=== PATIENT | female | born 1985 ===

== ENCOUNTER 2017-02-23 00:42 | Inpatient (IN) | payer MEDICAID, OTHER ==
[2017-02-23] MEDS ORDERED: Sodium Chloride 0.9% 1,000 ML IV ONE (01:03)
[2017-02-23] MEDS ORDERED: Sodium Chloride 0.9% 1,000 ML ONE (01:14)
[2017-02-23 01:27] LABS: BASO % 0.4 % (0.0-2.0); EOS # 0.1 K/uL (0.0-0.7); EOS % 1.7 % (0.0-4.0); HEMATOCRIT 39.2 % (34.0-47.0); LYMPH % 40.5 % (20.0-40.0); MEAN CELL VOLUME 88.9 fL (81.0-99.0); MEAN CORPUSCULAR HEMOGLOBIN 29.2 pg (27.0-31.0); MEAN CORPUSCULAR HGB CONC 32.8 g/dL (33.0-37.0); MEAN PLATELET VOLUME 9.6 fL (7.2-11.7); MONO # 0.6 K/uL (0.0-0.8); MONO % 7.4 % (0.0-10.0); RED CELL DISTRIBUTION WIDTH 12.9 % (11.5-14.5); WHITE BLOOD COUNT 7.4 K/uL (4.8-10.8)
[2017-02-23 01:40] LABS: CHLORIDE 104 mmol/L (98-107)
[2017-02-23 01:41] LABS: POTASSIUM 3.5 mmol/L (3.6-5.2); RBC URINE 2 /hpf (0-3); SODIUM 139 mmol/L (132-148); URINE BACTERIA RARE (<OCC); URINE BILIRUBIN NEGATIVE (NEGATIVE); URINE BLOOD 1+ (NEGATIVE); URINE COLOR Straw (YELLOW); URINE GLUCOSE (UA) NORMAL (Normal); URINE KETONE NEGATIVE (NEGATIVE); URINE LEUKOCYTE ESTERASE TRACE Leu/uL (Negative); URINE PROTEIN NEGATIVE (NEGATIVE); URINE UROBILINOGEN NORMAL mg/dL (0.2-1.0); WBC URINE 6 /hpf (0-5)
[2017-02-23 01:43] LABS: ALB/GLOB RATIO 1.3 (1.0-2.1); ALKALINE PHOSPHATASE 132 U/L (38-126); ALT/SGPT 37 U/L (9-52); AST/SGOT 26 U/L (14-36); BILIRUBIN,TOTAL < 0.1 mg/dL (0.2-1.3); BLOOD UREA NITROGEN 9 mg/dL (7-17); CALCIUM 8.2 mg/dl (8.6-10.4); CARBON DIOXIDE 22 mmol/L (22-30); GFR AFRICAN-AMERICAN > 60; GLUCOSE,RANDOM 103 mg/dL (65-105); TOTAL PROTEIN 7.3 g/dL (6.3-8.3)
--- NOTE | 2017-02-23 02:14 | C.PDOC ---
Time Seen by Provider: 02/23/17 00:57 Chief Complaint (Nursing): Abdominal Pain History Per: Patient Onset/Duration Of Symptoms: Hrs (3) Current Symptoms Are (Timing): Still Present Location Of Pain/Discomfort: RUQ Radiation Of Pain To:: Flank Quality Of Discomfort: "Pain" Associated Symptoms: Nausea Alleviating Factors: None Additional History Per: Prior Records Past Medical History Reviewed: Historical Data, Nursing Documentation, Vital Signs Vital Signs: Last Vital Signs Temp 98.1 F 02/23/17 00:51 Pulse 68 02/23/17 00:51 Resp 18 02/23/17 00:51 BP 127/88 02/23/17 00:51 Pulse Ox 99 02/23/17 04:09 - Medical History PMH: Gall Bladder Disease (Cholelithiasis) Surgical History: (x3) Family History: States: Unknown Family Hx - Social History Hx Alcohol Use: No Hx Substance Use: No - Immunization History Hx Tetanus Toxoid Vaccination: No Hx Influenza Vaccination: Yes Hx Pneumococcal Vaccination: No Review Of Systems Except As Marked, All Systems Reviewed And Found Negative. Constitutional: Negative for: Fever, Weakness Cardiovascular: Negative for: Chest Pain Respiratory: Negative for: Cough, Shortness of Breath Gastrointestinal: Positive for: Nausea, Abdominal Pain. Negative for: Vomiting , Diarrhea Genitourinary: Negative for: Dysuria Musculoskeletal: Negative for: Neck Pain Skin: Negative for: Rash Neurological: Negative for: Weakness, Numbness, Seizures, Altered Mental Status Physical Exam - Physical Exam Appears: Non-toxic, No Acute Distress Skin: Normal Color, Warm, Dry, No Rash Head: Atraumatic, Normacephalic Eye(s): bilateral: PERRL, EOMI Neck: Normal ROM, Supple Cardiovascular: Rhythm Regular Respiratory: Normal Breath Sounds, No Accessory Muscle Use Gastrointestinal/Abdominal: Soft, Tenderness (RUQ), No Guarding, No Rebound Back: No CVA Tenderness Extremity: Normal ROM, No Pedal Edema, No Calf Tenderness Neurological/Psych: Oriented x3, Normal Motor, Normal Sensation ED Course And Treatment - Laboratory Results Result Diagrams: 02/23/17 01:24 02/23/17 01:24 Lab Interpretation: Abnormal Interpretation Of Abnormal: Elevated Alk phos level. Urine POC: Negative O2 Sat by Pulse Oximetry: 99 Pulse Ox Interpretation: Normal - CT Scan/US RUQ Sono Other Rad Studies (CT/US): Read By Radiologist, Radiology Report Reviewed CT/US Interpretation: IMPRESSION: Gallstones noting a gallstone appearing impacted in the gallbladder neck. Prominent common bile duct with no stone identified in the common bile duct. within limits of the study. Laboratory correlation for biliary obstruction and. clinical correlation for possible cholecystitis is recommended. . Normal right kidney. - Physician Consult Information Physician Contacted: Andrae Nowak (Surg.) Outcome Of Conversation: He will consult on pt and is planning on taking pt to the OR later today. He requested to give Rocephin and keep NPO. Progress - Interventions Interventions:: Observation, Intravenous fluid - Medications Administered Intravenous: Antiemetic, H-2 brennan, Opiate - Data Reviewed Data Reviewed: Lab, Diagnostic imaging, Old records - Patient Status Patient status: Partially improved - Continuity of Care Discussed patient case with:: Patient, ED Nurse, On-call PMD-pt unassigned Discussed pt. case with client relationship consultant/specialty: General Surgery - Patient Plan Patient Plan: Admission Disposition Discussed With : Yasmany Daniel Comment: He accepted pt on hospitalist service. Doctor Will See Patient In The: Hospital Counseled Patient/Family Regarding: Studies Performed, Diagnosis - Disposition Disposition: HOSPITALIZED Disposition Time: 05:11 Condition: FAIR - Clinical Impression Clinical Impression: Impacted gallstone of gallbladder, Right upper quadrant abdominal pain, Acquired dilation of common bile duct
--- NOTE | 2017-02-23 03:41 | US ---
EXAM: US Abdomen Limited, Right Upper Quadrant CLINICAL HISTORY: 31 years old, female; Pain; Abdominal pain; Epigastric; Additional info: Ruq pain, h/o gallstones TECHNIQUE: Real-time ultrasound of the right upper quadrant with image documentation. EXAM DATE/TIME: Exam ordered 02/23/2017 1:45 AM COMPARISON: US - ABDOMEN LIMITED 09/07/2015 8:29:34 AM FINDINGS: Liver: Liver measures 16.8 cm, increased echogenicity is seen, a finding which is statistically most often associated with hepatic steatosis. There is an area of focally decreased relative echogenicity which could represent focal fatty sparing but is not further defined on this study. Please note that hepatic steatosis is a new finding compared to prior of September 2015. Gallbladder: There are multiple gallstones, one of these appears impacted in the gallbladder neck. Gallbladder wall is 2 mm which is within normal limits. As per the geospatial information technologist, there was no sonographic Tobar's sign identified. Common bile duct: Unremarkable as visualized. No stones. No dilation. Pancreas: Unremarkable as visualized. Right kidney: The right kidney measures 10.8 x 4.0 x 4.9 cm, with no hydronephrosis, calcification, or contour deforming masses. No stones. Spleen: The spleen is not imaged. Free fluid: No perihepatic ascites is seen. Other findings: The common duct is 10 mm which is pathologically prominent. IMPRESSION: Gallstones noting a gallstone appearing impacted in the gallbladder neck. Prominent common bile duct with no stone identified in the common bile duct within limits of the study. Laboratory correlation for biliary obstruction and clinical correlation for possible cholecystitis is recommended. Normal right kidney.
[2017-02-23] MEDS ORDERED: Morphine 4 MG/ML VIAL ONE (03:51)
[2017-02-23] MEDS ORDERED: cefTRIAXone IV 1 gm in Dextros 50 ML IVPB ONE ×2 (05:13→05:24)
--- NOTE | 2017-02-23 05:58 | CP.PCM.HP ---
<Aubrey ZUNIGARadha Gruber - Last Filed: 02/23/17 07:37> History of Present Illness - History of Present Illness History of Present Illness: Patient is a 31 year old female with past medical history of cholelithiasis presents to the ER with complaint of right upper quadrant abdominal pain. Patient states that the pain began 9PM the evening of 02/22/17. Patient denies radiation of pain. Patient states this has happened in the past and the pain will usually last 2-3 days at a time. Patient states the pain is aggravated with fatty or fried foods. Patient admits that she has been told to avoid these types of food in the past. Patient denies fever, chills, chest pain, shortness of breath. Patient admits to nausea but denies vomiting. Patient denies changes in appetite. Patient reports normal bowel movement yesterday, denies diarrhea, denies dysuria. Patient is requesting surgery as this has happened to her multiple times in the past. Patient interview conducted with video digital marketing specialist [facility] # [id number]. 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 absent: Constipation, Diarrhea, Hematemesis, Hematochezia, Vomiting - Genitourinary Genitourinary: absent: Difficulty Urinating, Dysuria - Musculoskeletal Musculoskeletal: absent: Back Pain - Neurological Neurological: absent: Dizziness, Weakness Past Patient History - Infectious Disease Hx of Infectious Diseases: None - Past Social History Smoking Status: Never Smoked - GASTROINTESTINAL Hx Gall Bladder Disease: Yes (Cholelithiasis) - PSYCHIATRIC Hx Substance Use: No - SURGICAL HISTORY Hx Surgeries: Yes Hx Section: Yes (x3) - ANESTHESIA Hx Anesthesia: Yes Hx Anesthesia Reactions: No Hx Malignant Hyperthermia: No Meds Allergies/Adverse Reactions: Allergies Allergy/AdvReac Type Severity Reaction Status Date / Time No Known Allergies Allergy Verified 02/23/17 00:49 Physical Exam - Constitutional Appears: Non-toxic, No Acute Distress - Head Exam Head Exam: ATRAUMATIC, NORMOCEPHALIC - Eye Exam Eye Exam: EOMI, Normal appearance - ENT Exam ENT Exam: Mucous Membranes Moist - Respiratory Exam Respiratory Exam: Clear to Auscultation Bilateral - Cardiovascular Exam Cardiovascular Exam: +S1, +S2 - GI/Abdominal Exam GI & Abdominal Exam: Guarding, Normal Bowel Sounds, Tenderness (right upper quadrant). absent: Distended, Firm - Extremities Exam Extremities exam: Positive for: normal inspection. Negative for: calf tenderness, pedal edema - Neurological Exam Neurological exam: Alert - Psychiatric Exam Psychiatric exam: Normal Affect - Skin Skin Exam: Dry, Normal Color, Warm Results - Vital Signs Recent Vital Signs: Last Vital Signs Temp 98.1 F 02/23/17 05:27 Pulse 85 02/23/17 05:27 Resp 20 02/23/17 05:27 BP 130/74 02/23/17 05:27 Pulse Ox 99 02/23/17 05:27 - Labs Result Diagrams: 02/23/17 01:24 02/23/17 01:24 Labs: Laboratory Results - last 24 hr 02/23/17 01:24 WBC 7.4 D RBC 4.41 Hgb 12.9 Hct 39.2 MCV 88.9 MCH 29.2 MCHC 32.8 L RDW 12.9 Plt Count 214 MPV 9.6 Neut % (Auto) 50.0 Lymph % (Auto) 40.5 H Young % (Auto) 7.4 Eos % (Auto) 1.7 Baso % (Auto) 0.4 Neut # 3.7 Lymph # 3.0 Young # 0.6 Eos # 0.1 Baso # 0.0 Sodium 139 Potassium 3.5 L Chloride 104 Carbon Dioxide 22 Anion Gap 17 BUN 9 Creatinine 0.5 L Est GFR ( Amer) > 60 Est GFR (Non-Af Amer) > 60 Random Glucose 103 Calcium 8.2 L Total Bilirubin < 0.1 L AST 26 ALT 37 Alkaline Phosphatase 132 H D Total Protein 7.3 Albumin 4.1 Globulin 3.2 Albumin/Globulin Ratio 1.3 Lipase 57 Urine Color Straw Urine Clarity Hazy Urine pH 6.0 Ur Specific Crowley 1.004 Urine Protein Negative Urine Glucose (UA) Normal Urine Ketones Negative Urine Blood 1+ H Urine Nitrate Negative Urine Bilirubin Negative Urine Urobilinogen Normal Ur Leukocyte Esterase Trace Urine WBC (Auto) 6 H Urine RBC (Auto) 2 Ur Squamous Epith Cells 11 H Urine Bacteria Rare Urine HCG, Qual Negative Assessment & Plan (1) Right upper quadrant abdominal pain Assessment and Plan: RUQ Sono Other Rad Studies (CT/US): Read By Radiologist, Radiology Report Reviewed CT/US Interpretation: IMPRESSION: Gallstones noting a gallstone appearing impacted in the gallbladder neck. Prominent common bile duct with no stone identified in the common bile duct. within limits of the study. Laboratory correlation for biliary obstruction and. clinical correlation for possible cholecystitis is recommended. Normal right kidney. will check HIDA scan dilaudid 0.5 mg q4h prn ceftriaxone 1g daily zofran q6prn keep npo until surgical evaluation by Dr. Nowak Status: Acute (2) Prophylactic measure Assessment and Plan: SCDs no chemical anticoagulation in case of surgical intervention Status: Acute <Yasmany Daniel P - Last Filed: 02/27/17 20:24> Results - Vital Signs Recent Vital Signs: Last Vital Signs Temp 98.4 F 02/24/17 08:28 Pulse 75 02/24/17 08:28 Resp 18 02/24/17 08:28 BP 102/62 02/24/17 08:28 Pulse Ox 99 02/24/17 08:28 - Labs Result Diagrams: 02/24/17 11:48 02/24/17 11:48 Attending/Attestation - Attestation I have personally seen and examined this patient.: Yes I have fully participated in the care of the patient.: Yes I have reviewed all pertinent clinical information: Yes
[2017-02-23] MEDS ORDERED: HYDROmorphone 0.5 mg/0.5 ml ISec IVP PRN ×2 (06:17→14:32)
--- NOTE | 2017-02-23 13:16 | NM ---
PROCEDURE: Nuclear Medicine Hepatobiliary Scan HISTORY: RUQ pain COMPARISON: February 23, 2017. Right upper quadrant ultrasound. TECHNIQUE: 5.1 mCi of technetium 99m Mebrofenin was administered intravenously. Planar images of the abdomen were obtained at 5 min intervals to 60 mins. Delayed images were also obtained. FINDINGS: LIVER: Timely and homogenous uptake. COMMON BILE DUCT: identified at 25 mins. GALLBLADDER not visualized on the delayed images at 03:00 SMALL BOWEL: Identified at 35 mins. IMPRESSION: Positive Hepatobiliary Scan. The cystic duct is occluded. Findings consistent with recent ultrasound findings, it indicative of acute cholecystitis. .
[2017-02-23] MEDS ORDERED: Midazolam 2 MG/2 ML VIAL ONE (13:18)
[2017-02-23] MEDS ORDERED: Propofol 10 mg/ml Inj (20 ML) ONE (13:19)
[2017-02-23] MEDS ORDERED: Rocuronium 10 mg/ml (5 ml) ONE (13:19)
[2017-02-23] MEDS ORDERED: Succinylcholine Chloride 20 mg/ml Syr (5 ml) IV ONE (13:19)
[2017-02-23] MEDS ORDERED: Phenylephrine 10 mg/ml Inj ONE (13:24)
[2017-02-23] MEDS ORDERED: Neostigmine Methylsulfate 3mg/3ml Syringe IV ONE (14:27)
[2017-02-23] MEDS ORDERED: Albuterol 0.083% Inhal Sol (2.5 mg/3 mL) UD INH PRN (14:32)
[2017-02-23] MEDS ORDERED: Oxycodone/Acetaminophen 5/325 mg Tab PO PRN (15:21)
--- NOTE | 2017-02-23 15:21 | OP ---
PROCEDURE DATE: 02/23/2017 PREOPERATIVE DIAGNOSIS: Acute cholecystitis. POSTOPERATIVE DIAGNOSES: Acute cholecystitis with umbilical hernia. PROCEDURE PERFORMED: 1. Laparoscopic cholecystectomy. 2. Repair of liver bleeding. 3. Repair of umbilical hernia. SURGEON: Andrae Nowak MD ANESTHESIA: General. ESTIMATED BLOOD LOSS: 75 mL. POSTOPERATIVE CONDITION: Stable. INDICATIONS FOR SURGERY: This is a 31-year-old female admitted with cholecystitis, taken to the OR f or laparoscopic cholecystectomy the day of admission. GROSS FINDINGS: The gallbladder was acutely inflamed. There was a small umbilical hernia noted upon cutdown. DESCRIPTION OF PROCEDURE: The patient was taken to the operating room. General anesthesia was admin istered and the abdomen was prepped and draped. A periumbilical cutdown ____ a small hernia was enco untered and the blunt port was inserted through the hernia site. The abdomen was then insufflated wi th CO2 and under direct vision, the remaining ports were placed. The gallbladder was grasped and ret racted after it was decompressed. The cystic duct was carefully dissected free. The cystic ____ gal lbladder, cystic duct, common duct junctions were clearly identified and the cystic duct was then cli pped and divided. The cystic artery was then dissected free, clipped and divided. The gallbladder w as removed from the bed using the cautery. Bleeding in the bed was controlled using the cautery. A bleeder on the lateral edge of the liver was controlled with a clip. The wound was irrigated. The a bdomen was irrigated with saline until clear. The umbilical hernia was closed with interrupted heavy Vicryl suture. The wounds were all irrigated with saline and simple skin closures were performed reeder bcuticularly with Monocryl. The patient tolerated the procedure well, returned to recovery room in s table condition. Andrae Nowak MD cc: [id number] TT: 02/23/2017 15:20:45
--- NOTE | 2017-02-23 16:06 | CP.PCM.PN ---
<Sony Schaefer - Last Filed: 02/23/17 16:08> Subjective - Date & Time of Evaluation Date of Evaluation: 02/23/17 Time of Evaluation: 09:15 - Subjective Subjective: PGY-1 Medicine Progress Note for Dr. Whatley Patient seen and examined at bedside this AM. Patient resting in bed comfortably. Patient was found to have cholelithiasis with impacted gallstone in neck of gallbladder. HIDA scan indicated acute cholecystitis so she was scheduled for cholecystectomy today with Dr. Nowak. Admits to nausea and abd pain but denies fever/chills, cp, sob, palpitations, vomiting, diarrhea. Objective - Vital Signs/Intake and Output Vital Signs (last 24 hours): Temp Pulse Resp BP Pulse Ox 97.6 F 69 19 108/72 98 02/23/17 15:53 02/23/17 15:53 02/23/17 15:53 02/23/17 15:53 02/23/17 15:53 Intake and Output: 02/23/17 02/23/17 06:59 18:59 Intake Total 1600 Balance 1600 - Medications Medications: Current Medications Albuterol Sulfate (Albuterol 0.083% Inhal Kelly (2.5 Mg/3 Ml) Ud) 2.5 mg INH PRN PRN PRN Reason: Shortness of Breath Hydromorphone HCl (Dilaudid) 0.5 mg IVP Q4H PRN PRN Reason: Pain, moderate (4-7) Hydromorphone HCl (Dilaudid) 0.5 mg IVP Q10M PRN PRN Reason: Pain, moderate (4-7) Stop: 02/23/17 16:33 Last Admin: 02/23/17 15:25 Dose: 0.5 mg Ceftriaxone Sodium 1 gm/ (Sodium Chloride) 100 mls @ 100 mls/hr IVPB DAILY [place] Last Admin: 02/23/17 11:07 Dose: 100 mls/hr Ondansetron HCl (Zofran Inj) 4 mg IVP Q6H PRN PRN Reason: Nausea/Vomiting Ondansetron HCl (Zofran Inj) 4 mg IVP ONCE PRN PRN Reason: Nausea/Vomiting Stop: 02/23/17 17:21 Last Admin: 02/23/17 15:20 Dose: 4 mg Oxycodone/Acetaminophen (Percocet 5/325 Mg Tab) 2 tab PO Q4H PRN PRN Reason: pain Stop: 02/26/17 15:22 - Constitutional Appears: No Acute Distress - Head Exam Head Exam: ATRAUMATIC, NORMOCEPHALIC - Eye Exam Eye Exam: EOMI, Normal appearance Pupil Exam: NORMAL ACCOMODATION, PERRL - ENT Exam ENT Exam: Mucous Membranes Moist - Neck Exam Neck Exam: Normal Inspection - Respiratory Exam Respiratory Exam: Clear to Ausculation Bilateral, NORMAL BREATHING PATTERN - Cardiovascular Exam Cardiovascular Exam: REGULAR RHYTHM, +S1, +S2 - GI/Abdominal Exam GI & Abdominal Exam: Soft, Tenderness (RUQ), Normal Bowel Sounds - Extremities Exam Extremities Exam: Normal Capillary Refill. absent: Calf Tenderness - Back Exam Back Exam: absent: CVA tenderness (L), CVA tenderness (R) - Neurological Exam Neurological Exam: Alert, Awake, CN II-XII Intact, Normal Gait, Oriented x3 - Psychiatric Exam Psychiatric exam: Normal Affect, Normal Mood - Skin Skin Exam: Dry, Intact, Normal Color, Warm Assessment and Plan - Assessment and Plan (Free Text) Plan: (1) Right upper quadrant abdominal pain Assessment and Plan: s/p cholecystectomy today with Dr. Eliu DUARTE CT/US Interpretation: Gallstones noting a gallstone appearing impacted in the gallbladder neck. Prominent common bile duct with no stone identified in the common bile duct. within limits of the study. Laboratory correlation for biliary obstruction and. clinical correlation for possible cholecystitis is recommended. Normal right kidney (see full report) HIDA scan: acute cholecystitis (see full report) dilaudid 0.5 mg q4h prn percocet 1 tab PO Q4H PRN ceftriaxone 1g daily zofran q6prn (2) Prophylactic measure Assessment and Plan: SCDs no chemical anticoagulation in case of surgical intervention <Ankit Whatley - Last Filed: 03/28/17 13:05> Objective - Vital Signs/Intake and Output Vital Signs (last 24 hours): Temp Pulse Resp BP Pulse Ox 98.4 F 75 18 102/62 99 02/24/17 08:28 02/24/17 08:28 02/24/17 08:28 02/24/17 08:28 02/24/17 08:28 - Labs Labs: 02/24/17 11:48 02/24/17 11:48 Attending/Attestation - Attestation I have personally seen and examined this patient.: Yes I have fully participated in the care of the patient.: Yes I have reviewed all pertinent clinical information, including history, physical exam and plan: Yes Notes (Text): Patient seen and examined with the resident. Agree with the resident's evaluation, assessment and plan. (1) Right upper quadrant abdominal pain Assessment and Plan: s/p cholecystectomy today with Dr. Eliu DUARTE CT/US Interpretation: Gallstones noting a gallstone appearing impacted in the gallbladder neck. Prominent common bile duct with no stone identified in the common bile duct. within limits of the study. Laboratory correlation for biliary obstruction and. clinical correlation for possible cholecystitis is recommended. Normal right kidney (see full report) HIDA scan: acute cholecystitis (see full report) dilaudid 0.5 mg q4h prn percocet 1 tab PO Q4H PRN ceftriaxone 1g daily zofran q6prn
[2017-02-24 08:30] VITALS: BP 102/62; PULSE 75; RESP 18; TEMP 98.4; O2SAT 99
[2017-02-24 11:54] LABS: BASO % 0.1 % (0.0-2.0); HEMATOCRIT 36.5 % (34.0-47.0); LYMPH # 1.3 K/uL (1.0-4.3); LYMPH % 12.4 % (20.0-40.0); MEAN CELL VOLUME 88.3 fL (81.0-99.0); MEAN CORPUSCULAR HEMOGLOBIN 29.3 pg (27.0-31.0); MEAN CORPUSCULAR HGB CONC 33.2 g/dL (33.0-37.0); MEAN PLATELET VOLUME 9.6 fL (7.2-11.7); MONO # 0.9 K/uL (0.0-0.8); MONO % 7.9 % (0.0-10.0); RED CELL DISTRIBUTION WIDTH 12.9 % (11.5-14.5); WHITE BLOOD COUNT 10.8 K/uL (4.8-10.8)
[2017-02-24 12:11] LABS: CHLORIDE 104 mmol/L (98-107); POTASSIUM 3.5 mmol/L (3.6-5.2); SODIUM 138 mmol/L (132-148)
[2017-02-24 12:13] LABS: BILIRUBIN,TOTAL 0.4 mg/dL (0.2-1.3); CARBON DIOXIDE 23 mmol/L (22-30); GFR AFRICAN-AMERICAN > 60
[2017-02-24 12:14] LABS: ALB/GLOB RATIO 1.2 (1.0-2.1); ALKALINE PHOSPHATASE 96 U/L (38-126); BLOOD UREA NITROGEN 6 mg/dL (7-17); CALCIUM 8.2 mg/dl (8.6-10.4); GLUCOSE,RANDOM 99 mg/dL (65-105); TOTAL PROTEIN 6.9 g/dL (6.3-8.3)
[2017-02-24 12:26] LABS: ALT/SGPT 263 U/L (9-52); AST/SGOT 176 U/L (14-36)
--- NOTE | 2017-02-24 13:44 | CP.PCM.DIS ---
<JaeanaSony delgado - Last Filed: 04/19/17 14:56> Provider - Provider Date of Admission: 02/23/17 05:13 Attending physician: Yasmany Daniel MD Consults: Gen Surg: Dr. Nowak Time Spent in preparation of Discharge (in minutes): 35 Diagnosis - Discharge Diagnosis (1) Cholecystitis Status: Acute (2) Abdominal pain Status: Acute (3) Cholelithiasis Status: Acute Hospital Course - Lab Results Lab Results: Most Recent Lab Values WBC 10.8 K/uL (4.8-10.8) 02/24/17 11:48 RBC 4.13 Mil/uL (3.80-5.20) 02/24/17 11:48 Hgb 12.1 g/dL (11.0-16.0) 02/24/17 11:48 Hct 36.5 % (34.0-47.0) 02/24/17 11:48 MCV 88.3 fL (81.0-99.0) 02/24/17 11:48 MCH 29.3 pg (27.0-31.0) 02/24/17 11:48 MCHC 33.2 g/dL (33.0-37.0) 02/24/17 11:48 RDW 12.9 % (11.5-14.5) 02/24/17 11:48 Plt Count 224 K/uL (130-400) 02/24/17 11:48 MPV 9.6 fL (7.2-11.7) 02/24/17 11:48 Neut % (Auto) 79.6 % (50.0-75.0) H 02/24/17 11:48 Lymph % (Auto) 12.4 % (20.0-40.0) L 02/24/17 11:48 [place] % (Auto) 7.9 % (0.0-10.0) 02/24/17 11:48 Eos % (Auto) 0.0 % (0.0-4.0) 02/24/17 11:48 Baso % (Auto) 0.1 % (0.0-2.0) 02/24/17 11:48 Neut # 8.6 K/uL (1.8-7.0) H 02/24/17 11:48 Lymph # 1.3 K/uL (1.0-4.3) 02/24/17 11:48 Garrett # 0.9 K/uL (0.0-0.8) H 02/24/17 11:48 Eos # 0.0 K/uL (0.0-0.7) 02/24/17 11:48 Baso # 0.0 K/uL (0.0-0.2) 02/24/17 11:48 Sodium 138 mmol/L (132-148) 02/24/17 11:48 Potassium 3.5 mmol/L (3.6-5.2) L 02/24/17 11:48 Chloride 104 mmol/L (98-107) 02/24/17 11:48 Carbon Dioxide 23 mmol/L (22-30) 02/24/17 11:48 Anion Gap 15 (10-20) 02/24/17 11:48 BUN 6 mg/dL (7-17) L 02/24/17 11:48 Creatinine 0.6 MG/DL (0.7-1.2) L 02/24/17 11:48 Est GFR ( Amer) > 60 02/24/17 11:48 Est GFR (Non-Af Amer) > 60 02/24/17 11:48 Random Glucose 99 mg/dL (65-105) 02/24/17 11:48 Calcium 8.2 mg/dl (8.6-10.4) L 02/24/17 11:48 Total Bilirubin 0.4 mg/dL (0.2-1.3) 02/24/17 11:48 AST 176 U/L (14-36) H D 02/24/17 11:48 ALT 263 U/L (9-52) H D 02/24/17 11:48 Alkaline Phosphatase 96 U/L (38-126) 02/24/17 11:48 Total Protein 6.9 g/dL (6.3-8.3) 02/24/17 11:48 Albumin 3.8 g/dL (3.5-5.0) 02/24/17 11:48 Globulin 3.1 gm/dL (2.2-3.9) 02/24/17 11:48 Albumin/Globulin Ratio 1.2 (1.0-2.1) 02/24/17 11:48 Lipase 57 U/L (23-300) 02/23/17 01:24 Urine Color Straw (YELLOW) 02/23/17 01:24 Urine Clarity Hazy (Clear) 02/23/17 01:24 Urine pH 6.0 (5.0-8.0) 02/23/17 01:24 Ur Specific [place] 1.004 (1.003-1.030) 02/23/17 01:24 Urine Protein Negative mg/dL (NEGATIVE) 02/23/17 01:24 Urine Glucose (UA) Normal mg/dL (Normal) 02/23/17 01:24 Urine Ketones Negative mg/dL (NEGATIVE) 02/23/17 01:24 Urine Blood 1+ (NEGATIVE) H 02/23/17 01:24 Urine Nitrate Negative (NEGATIVE) 02/23/17 01:24 Urine Bilirubin Negative (NEGATIVE) 02/23/17 01:24 Urine Urobilinogen Normal mg/dL (0.2-1.0) 02/23/17 01:24 Ur Leukocyte Esterase Trace Wilian/uL (Negative) 02/23/17 01:24 Urine WBC (Auto) 6 /hpf (0-5) H 02/23/17 01:24 Urine RBC (Auto) 2 /hpf (0-3) 02/23/17 01:24 Ur Squamous Epith Cells 11 /hpf (0-5) H 02/23/17 01:24 Urine Bacteria Rare (<OCC) 02/23/17 01:24 Urine HCG, Qual Negative (NEGATIVE) 02/23/17 01:24 - Hospital Course Hospital Course: 31 year old female with past medical history of cholelithiasis presents to the ER with complaint of right upper quadrant abdominal pain. Patient states that the pain began 9PM the evening of 02/22/17. Patient denies radiation of pain. Patient states this has happened in the past and the pain will usually last 2-3 days at a time. Patient states the pain is aggravated with fatty or fried foods. Patient admits that she has been told to avoid these types of food in the past. Patient denies fever, chills, chest pain, shortness of breath. Patient admits to nausea but denies vomiting. Patient denies changes in appetite. Patient reports normal bowel movement yesterday, denies diarrhea, denies dysuria. Patient is requesting surgery as this has happened to her multiple times in the past. Patient was admitted for cholecystitis. Patient was started on IV antibiotics and IV fluids. ABD US revelaed gallstones noting a gallstone appearing impacted in the gallbladder neck. Prominent common bile duct with no stone identified in the common bile duct. within limits of the study. Laboratory correlation for biliary obstruction and. clinical correlation for possible cholecystitis is recommended. Normal right kidney (see full report). Also, the HIDA scan demonstrated acute cholecystitis (see full report). General Surgery, Dr. Nowak was consulted. On 02/23, patient went for cholecystectomy and tolerated the procedure well without complications. The next morning (02/24), patient was cleared for discharged by Dr. Whatley and Dr. Nowak. Patient was instructed to follow up with Dr. Nowak in one week as outpatient. (This is a summary of the hospital course. Please refer to EMR for more specific details.) Discharge Exam - Head Exam Head Exam: ATRAUMATIC, NORMOCEPHALIC - Eye Exam Eye Exam: EOMI, Normal appearance Pupil Exam: PERRL - ENT Exam ENT Exam: Mucous Membranes Moist - Neck Exam Neck exam: Normal Inspection - Respiratory Exam Respiratory Exam: Clear to PA & Lateral, NORMAL BREATHING PATTERN, UNREMARKABLE - Cardiovascular Exam Cardiovascular Exam: REGULAR RHYTHM, +S2 - GI/Abdominal Exam GI & Abdominal Exam: Normal Bowel Sounds, Soft, Tenderness (mild to palpation) - Extremities Exam Extremities exam: normal capillary refill, pedal pulses present - Back Exam Back exam: absent: CVA tenderness (L), CVA tenderness (R) - Neurological Exam Neurological exam: Alert, CN II-XII Intact, Normal Gait, Oriented x3, Reflexes Normal - Psychiatric Exam Psychiatric exam: Normal Affect, Normal Mood - Skin Skin Exam: Dry, Intact, Normal Color, Warm Discharge Plan - Follow Up Plan Condition: STABLE Disposition: HOME/ ROUTINE Instructions: Ibuprofen (By mouth), Laparoscopic Cholecystectomy (DC) Additional Instructions: Take Advil for pain, Follow up in office in one week. May take off bandages and shower tomorrow Referrals: Clinic,Med Surg [Non-Staff] - Andrae Nowak MD [Staff Provider] - <Ankit Whatley - Last Filed: 04/20/17 11:43> Provider - Provider Date of Admission: 02/23/17 05:13 Attending physician: Yasmany Daniel MD Hospital Course - Lab Results Lab Results: Most Recent Lab Values WBC 10.8 K/uL (4.8-10.8) 02/24/17 11:48 RBC 4.13 Mil/uL (3.80-5.20) 02/24/17 11:48 Hgb 12.1 g/dL (11.0-16.0) 02/24/17 11:48 Hct 36.5 % (34.0-47.0) 02/24/17 11:48 MCV 88.3 fL (81.0-99.0) 02/24/17 11:48 MCH 29.3 pg (27.0-31.0) 02/24/17 11:48 MCHC 33.2 g/dL (33.0-37.0) 02/24/17 11:48 RDW 12.9 % (11.5-14.5) 02/24/17 11:48 Plt Count 224 K/uL (130-400) 02/24/17 11:48 MPV 9.6 fL (7.2-11.7) 02/24/17 11:48 Neut % (Auto) 79.6 % (50.0-75.0) H 02/24/17 11:48 Lymph % (Auto) 12.4 % (20.0-40.0) L 02/24/17 11:48 Garrett % (Auto) 7.9 % (0.0-10.0) 02/24/17 11:48 Eos % (Auto) 0.0 % (0.0-4.0) 02/24/17 11:48 Baso % (Auto) 0.1 % (0.0-2.0) 02/24/17 11:48 Neut # 8.6 K/uL (1.8-7.0) H 02/24/17 11:48 Lymph # 1.3 K/uL (1.0-4.3) 02/24/17 11:48 Garrett # 0.9 K/uL (0.0-0.8) H 02/24/17 11:48 Eos # 0.0 K/uL (0.0-0.7) 02/24/17 11:48 Baso # 0.0 K/uL (0.0-0.2) 02/24/17 11:48 Sodium 138 mmol/L (132-148) 02/24/17 11:48 Potassium 3.5 mmol/L (3.6-5.2) L 02/24/17 11:48 Chloride 104 mmol/L (98-107) 02/24/17 11:48 Carbon Dioxide 23 mmol/L (22-30) 02/24/17 11:48 Anion Gap 15 (10-20) 02/24/17 11:48 BUN 6 mg/dL (7-17) L 02/24/17 11:48 Creatinine 0.6 MG/DL (0.7-1.2) L 02/24/17 11:48 Est GFR ( Amer) > 60 02/24/17 11:48 Est GFR (Non-Af Amer) > 60 02/24/17 11:48 Random Glucose 99 mg/dL (65-105) 02/24/17 11:48 Calcium 8.2 mg/dl (8.6-10.4) L 02/24/17 11:48 Total Bilirubin 0.4 mg/dL (0.2-1.3) 02/24/17 11:48 AST 176 U/L (14-36) H D 02/24/17 11:48 ALT 263 U/L (9-52) H D 02/24/17 11:48 Alkaline Phosphatase 96 U/L (38-126) 02/24/17 11:48 Total Protein 6.9 g/dL (6.3-8.3) 02/24/17 11:48 Albumin 3.8 g/dL (3.5-5.0) 02/24/17 11:48 Globulin 3.1 gm/dL (2.2-3.9) 02/24/17 11:48 Albumin/Globulin Ratio 1.2 (1.0-2.1) 02/24/17 11:48 Lipase 57 U/L (23-300) 02/23/17 01:24 Urine Color Straw (YELLOW) 02/23/17 01:24 Urine Clarity Hazy (Clear) 02/23/17 01:24 Urine pH 6.0 (5.0-8.0) 02/23/17 01:24 Ur Specific [place] 1.004 (1.003-1.030) 02/23/17 01:24 Urine Protein Negative mg/dL (NEGATIVE) 02/23/17 01:24 Urine Glucose (UA) Normal mg/dL (Normal) 02/23/17 01:24 Urine Ketones Negative mg/dL (NEGATIVE) 02/23/17 01:24 Urine Blood 1+ (NEGATIVE) H 02/23/17 01:24 Urine Nitrate Negative (NEGATIVE) 02/23/17 01:24 Urine Bilirubin Negative (NEGATIVE) 02/23/17 01:24 Urine Urobilinogen Normal mg/dL (0.2-1.0) 02/23/17 01:24 Ur Leukocyte Esterase Trace Wilian/uL (Negative) 02/23/17 01:24 Urine WBC (Auto) 6 /hpf (0-5) H 02/23/17 01:24 Urine RBC (Auto) 2 /hpf (0-3) 02/23/17 01:24 Ur Squamous Epith Cells 11 /hpf (0-5) H 02/23/17 01:24 Urine Bacteria Rare (<OCC) 02/23/17 01:24 Urine HCG, Qual Negative (NEGATIVE) 02/23/17 01:24 Attending/Attestation - Attestation I have personally seen and examined this patient.: Yes I have fully participated in the care of the patient.: Yes I have reviewed all pertinent clinical information, including history, physical exam and plan: Yes Notes (Text): Patient Seen and examined with the resident. Agree with the resident's evaluation, assessment and plan. With addendum below. Patient was admitted for cholecystitis. Management of surgery and post op was done by surgery. Medicine was on board only to help for medical issues.
== END 2017-02-24 11:45 | disposition home or self-care (01) | DRG 494 ==
LOC: C.ER 00:42 → SUPCPDRO 00:42 → C.6T 05:13
PROVIDERS: ADMIT Internal Medicine; ATTEND Internal Medicine
PROC: 0WQF4ZZ Repair Abdominal Wall, Percutaneous Endoscopic Approach (ICD-10-PCS; 2017-02-23)
PROC: 0FT44ZZ Resection of Gallbladder, Percutaneous Endoscopic Approach (ICD-10-PCS; principal; 2017-02-23 12:15)
DX: K80.12 Calculus of gallbladder with acute and chronic cholecystitis without obstruction (principal); K83.8 Other specified diseases of biliary tract; K42.9 Umbilical hernia without obstruction or gangrene